=== PATIENT | female | born 1980 | race Caucasian/White ===

== ENCOUNTER 2019-09-27 15:34 | Emergency (ER) | payer OTHER ==
[~2019-09-27] VITALS: Ht 165.1 cm; Wt 76.7 kg
[2019-09-27 15:43] VITALS: Ht 165.1 cm; Wt 76.7 kg
[2019-09-27 17:02] VITALS: BP 113/78
== END 2019-09-27 17:02 | disposition home or self-care (01) ==
LOC: ED 15:34
DX: S09.90XA Unspecified injury of head, initial encounter (principal)